=== PATIENT | female | born 1950 | race Caucasian/White ===

== ENCOUNTER 2024-01-26 12:23 | Outpatient (CLI) | payer MEDICARE | END 2024-01-26 23:59 | disposition home or self-care (01) | LOC: RAD 12:23 | PROVIDERS: ATTEND Podiatrist Foot & Ankle Surgery | DX: M19.072 Primary osteoarthritis, left ankle and foot (principal); M79.671 Pain in right foot; M20.11 Hallux valgus (acquired), right foot; M79.672 Pain in left foot; M20.42 Other hammer toe(s) (acquired), left foot; M20.41 Other hammer toe(s) (acquired), right foot; M20.12 Hallux valgus (acquired), left foot; M77.42 Metatarsalgia, left foot; M77.41 Metatarsalgia, right foot | CPT/HCPCS: 73700 ==